=== PATIENT | male | born 1960 | race Caucasian/White ===

== ENCOUNTER 2017-07-29 14:56 | Emergency (ER) | payer OTHER ==
[2017-07-29] MEDS ORDERED: LIDOCAINE 1% MPF 5 ML VIAL ONE (15:49)
--- NOTE | 2017-07-29 16:39 | ER ---
Nurse's Notes [facility] Name: Jonas Guzman Age: 57 yrs Sex: Male : 1960 Arrival Date: 07/29/2017 Time: 15:01 Bed 24 Private MD: Diagnosis: Laceration without foreign body of unspecified part of head-chin Presentation: 07/29 15:03 Presenting complaint: Patient states: I slipped and fell and a piece of metal cut my ed1 chin. Transition of care: patient was not received from another setting of care. Complicating Factors: There are no complicating factors for this patient. Onset of symptoms was July 29, 2017 at 12:45. Risk Assessment: Do you want to hurt yourself or someone else? Patient reports no desire to harm self or others. Initial Sepsis Screen: Does the patient meet any 2 criteria? No. Patient's initial sepsis screen is negative. Does the patient have a suspected source of infection? No. Patient's initial sepsis screen is negative. Care prior to arrival: Bleeding of injury controlled. Injury cleansed. Injury dressed. 15:03 Method Of Arrival: Law Enforcement: [place] [employer] ed1 15:21 Acuity: DAVID 4 ss Triage Assessment: 15:06 General: Appears in no apparent distress. Behavior is calm, cooperative. Pain: ed1 Complains of pain in chin Pain does not radiate. Pain currently is 8 out of 10 on a pain scale. Quality of pain is described as throbbing, Pain began 2 hours ago. Is continuous. Injury Description: Laceration sustained to chin is clean, 2.6 to 7.5 cm long, not bleeding, was sustained 2-4 hours ago. is bleeding no active bleeding noted. a dressing was applied. Historical: - Allergies: 15:06 No Known Allergies; ed1 - Home Meds: 15:06 amlodipine 10 mg tab 1 tab once daily [Active]; aspirin 81 mg Oral TbEC 1 tab once ed1 daily [Active]; lisinopril 40 mg Oral tab 1 tab once daily [Active]; metoprolol tartrate 50 mg Oral tab 1 tab 2 times per day [Active]; terazosin 5 mg Oral cap 1 cap once daily [Active]; - PMHx: 15:06 Hypertension; Kidney stones; ed1 - PSHx: 15:06 None; ed1 - Immunization history:: Adult Immunizations up to date, Last tetanus immunization: up to date given today. - Social history:: Smoking status: Patient/guardian denies using tobacco. - Ebola Screening: : Patient negative for fever greater than or equal to 101.5 degrees Fahrenheit, and additional compatible Ebola Virus Disease symptoms Patient denies exposure to infectious person Patient denies travel to an Ebola-affected area in the 21 days before illness onset No symptoms or risks identified at this time. Screenin:08 Abuse screen: Denies threats or abuse. Denies injuries from another. Nutritional ed1 screening: No deficits noted. Tuberculosis screening: No symptoms or risk factors identified. Fall Risk None identified. Assessment: 15:08 General: Appears in no apparent distress. Behavior is calm, cooperative. Pain: ed1 Complains of pain in chin. Neuro: Level of Consciousness is awake, alert, obeys commands, Oriented to person, place, time, situation. Cardiovascular: Denies chest pain, Heart tones S1 S2 present. Respiratory: Airway is patent Respiratory effort is even, unlabored, Respiratory pattern is regular, symmetrical, Breath sounds are clear bilaterally. GI: No signs and/or symptoms were reported involving the gastrointestinal system. : No signs and/or symptoms were reported regarding the genitourinary system. EENT: No signs and/or symptoms were reported regarding the EENT system. Derm: Skin is pink, warm \T\ dry. Musculoskeletal: Circulation, motion, and sensation intact. Range of motion: intact in all extremities. Injury Description: Laceration sustained to chin. 15:15 General: The previous assessment is accurate, call light remains within reach. . ss 16:08 Injury Description: Laceration sustained to chin is clean, 2.6 to 7.5 cm long, not ed1 bleeding, was sustained 2-4 hours ago. is bleeding no active bleeding noted. a dressing was applied. 16:08 Reassessment: Patient appears in no apparent distress at this time. No changes from ed1 previously documented assessment. Patient and/or family updated on plan of care and expected duration. Pain level reassessed. Patient is alert, oriented x 3, equal unlabored respirations, skin warm/dry/pink. Patient states symptoms have not improved. 16:59 Reassessment: Patient appears in no apparent distress at this time. No changes from ed1 previously documented assessment. Patient and/or family updated on plan of care and expected duration. Pain level reassessed. Patient is alert, oriented x 3, equal unlabored respirations, skin warm/dry/pink. Vital Signs: 15:06 BP 154 / 97; Pulse 86; Resp 18; Temp 97.8(O); Pulse Ox 96% on R/A; Weight 95.25 kg (R); ed1 Height 6 ft. 0 in. (182.88 cm) (R); Pain 8/10; 16:08 BP 148 / 99; Pulse 78; Resp 18; Pulse Ox 95% on R/A; Pain 8/10; ed1 15:06 Body Mass Index 28.48 (95.25 kg, 182.88 cm) ed1 ED Course: 15:01 Patient arrived in ED. 15:03 Amanda Soler LVN is Primary Nurse. ed1 15:06 Arm band placed on left wrist. ed1 15:08 Awaiting ED provider evaluation. ed1 15:08 Patient has correct armband on for positive identification. Bed in low position. Call ed1 light in reach. Adult w/ patient. Pulse ox on. NIBP on. 15:21 Triage completed. ss 15:24 Kp Tello NP is PHCP. pm1 15:24 Solomon Nielsen MD is Attending Physician. pm1 16:59 No provider procedures requiring assistance completed. Patient did not have IV access ed1 during this emergency room visit. Administered Medications: 15:49 Drug: Lidocaine (1 %) 5 ml Volume: 5 ml; Route: Infiltration; ed1 Outcome: 16:38 Discharge ordered by . pm1 16:59 Discharged to Law Enforcement ed1 16:59 Condition: good 16:59 Discharge instructions given to patient, Instructed on discharge instructions, follow up and referral plans. medication usage, wound care, Demonstrated understanding of instructions, follow-up care, medications, wound care, Prescriptions given X 1. 16:59 Patient left the ED. ed1 Signatures: Medina Palacios RN RN Amanda Soler LVN REGISTERED DENTAL ASSISTANT RDA ed1 Kp Tello NP SENIOR FINANCIAL ANALYST pm1 Corrections: (The following items were deleted from the chart) 16:09 16:08 Injury Description: Laceration sustained to chin is clean, 2.6 to 7.5 cm long, ed1 not bleeding, was sustained 2-4 hours ago. is bleeding no active bleeding noted. a dressing was applied ed1
--- NOTE | 2017-07-29 16:39 | EDPHYS ---
Physician Documentation [facility] Name: Jonas Guzman Age: 57 yrs Sex: Male : 1960 Arrival Date: 07/29/2017 Time: 15:01 Bed 24 Private MD: ED Physician Solomon Nielsen HPI: 07/29 16:37 This 57 yrs old Male presents to ER via Law Enforcement with complaints of pm1 Laceration To Chin. 16:37 The patient has a laceration related to: working, occurred Shelter, Galvanized steel pm1 sheet accidentally cut his left side of chin. The laceration(s) is(are) located on the chin. Onset: The symptoms/episode began/occurred just prior to arrival. Associated signs and symptoms: Pertinent negatives: deformity, heavy bleeding, suspected foreign body. The patient has not recently seen a physician. Patient was given tetanus at senior living prior to arrival. Historical: - Allergies: 15:06 No Known Allergies; ed1 - Home Meds: 15:06 amlodipine 10 mg tab 1 tab once daily [Active]; aspirin 81 mg Oral TbEC 1 tab once ed1 daily [Active]; lisinopril 40 mg Oral tab 1 tab once daily [Active]; metoprolol tartrate 50 mg Oral tab 1 tab 2 times per day [Active]; terazosin 5 mg Oral cap 1 cap once daily [Active]; - PMHx: 15:06 Hypertension; Kidney stones; ed1 - PSHx: 15:06 None; ed1 - Immunization history:: Adult Immunizations up to date, Last tetanus immunization: up to date given today. - Social history:: Smoking status: Patient/guardian denies using tobacco. - Ebola Screening: : Patient negative for fever greater than or equal to 101.5 degrees Fahrenheit, and additional compatible Ebola Virus Disease symptoms Patient denies exposure to infectious person Patient denies travel to an Ebola-affected area in the 21 days before illness onset No symptoms or risks identified at this time. ROS: 16:37 Constitutional: Negative for fever, chills, and weight loss, Eyes: Negative for injury, pm1 pain, redness, and discharge, ENT: Negative for injury, pain, and discharge, Neck: Negative for injury, pain, and swelling, Cardiovascular: Negative for chest pain, palpitations, and edema, Respiratory: Negative for shortness of breath, cough, wheezing, and pleuritic chest pain, Abdomen/GI: Negative for abdominal pain, nausea, vomiting, diarrhea, and constipation, Back: Negative for injury and pain, MS/Extremity: Negative for injury and deformity. 16:37 Neuro: Negative for headache, weakness, numbness, tingling, and seizure. 16:37 Skin: Positive for laceration(s), of the chin. Exam: 16:37 Constitutional: This is a well developed, well nourished patient who is awake, alert, pm1 and in no acute distress. 16:37 Chest/axilla: Normal chest wall appearance and motion. Nontender with no deformity. No lesions are appreciated. Cardiovascular: Regular rate and rhythm with a normal S1 and S2. No gallops, murmurs, or rubs. Normal PMI, no JVD. No pulse deficits. Respiratory: Lungs have equal breath sounds bilaterally, clear to auscultation and percussion. No rales, rhonchi or wheezes noted. No increased work of breathing, no retractions or nasal flaring. Back: No spinal tenderness. No costovertebral tenderness. Full range of motion. 16:37 Head/face: Noted is a laceration(s), that is jagged, 3 cm(s), of the chin. 16:37 Skin: Appearance: normal except for affected area, injury, laceration(s), the wound is approximately 3 cm(s), with a depth of 1 cm(s), of the chin. 16:37 Neuro: Orientation: is normal, Motor: is normal, moves all fours. Vital Signs: 15:06 BP 154 / 97; Pulse 86; Resp 18; Temp 97.8(O); Pulse Ox 96% on R/A; Weight 95.25 kg (R); ed1 Height 6 ft. 0 in. (182.88 cm) (R); Pain 8/10; 16:08 BP 148 / 99; Pulse 78; Resp 18; Pulse Ox 95% on R/A; Pain 8/10; ed1 15:06 Body Mass Index 28.48 (95.25 kg, 182.88 cm) ed1 Laceration: 16:37 Wound Repair of 3cm ( 1.2in ) subcutaneous laceration to chin. Irregularly shaped.. pm1 Distal neuro/vascular/tendon intact. Anesthesia: Local anesthetic administered with 4 mls of 1% lidocaine. Wound prep: Extensive cleansing with betadine by me, Wound irrigation with saline by me, Wound explored extensively, Copious irrigation. Skin closed with 10 5-0 Prolene using simple sutures and sterile technique. Dressed with Neosporin. Patient tolerated well. MDM: 15:24 Patient medically screened. pm1 16:37 Data reviewed: vital signs. Data interpreted: Pulse oximetry: on room air is 95 %. pm1 Interpretation: normal. Counseling: I had a detailed discussion with the patient and/or guardian regarding: the historical points, exam findings, and any diagnostic results supporting the discharge/admit diagnosis, the need for outpatient follow up, to return to the emergency department if symptoms worsen or persist or if there are any questions or concerns that arise at home. 07/29 15:40 Order name: Prolene, Sutures; Complete Time: 15:46 pm1 07/29 15:40 Order name: Gloves, Sterile; Complete Time: 15:46 pm1 07/29 15:40 Order name: Setup Suture Tray; Complete Time: 15:46 pm1 Administered Medications: 15:49 Drug: Lidocaine (1 %) 5 ml Volume: 5 ml; Route: Infiltration; ed1 Disposition: 07/29/17 16:38 Discharged to Home. Impression: Laceration without foreign body of unspecified part of head - chin. - Condition is Stable. - Discharge Instructions: Facial Laceration, Stitches, [place], or Adhesive Wound Closure. - Prescriptions for Keflex 500 mg Oral Capsule - take 1 capsule by ORAL route every 12 hours for 10 days; 20 capsule. - Medication Reconciliation Form, Thank You Letter, Antibiotic Education form. - Follow up: Emergency Department; When: As needed; Reason: Worsening of condition. Follow up: Private Physician; When: 4-5 days; Reason: Wound Recheck, Recheck today's complaints, Continuance of care, Staple/Suture removal, Re-evaluation by your physician. - Problem is new. - Symptoms have improved. Addendum: 07/31/2017 14:41 Co-signature as Attending Physician, Solomon Nielsen MD I agree with the assessment and w a plan of care. Signatures: Amanda Soler, UPKEEP MECHANIC UPKEEP MECHANIC ed1 Kp Tello, FUEL CONVERSION TECHNICIAN FUEL CONVERSION TECHNICIAN pm1 Solomon Nielsen MD MD wa Corrections: (The following items were deleted from the chart) 07/29 16:59 16:38 07/29/2017 16:38 Discharged to Home. Impression: Laceration without foreign body ed1 of unspecified part of head - chin. Condition is Stable. Forms are Medication Reconciliation Form, Thank You Letter, Antibiotic Education, Prescription Opioid Use. Follow up: Emergency Department; When: As needed; Reason: Worsening of condition. Follow up: Private Physician; When: 4-5 days; Reason: Wound Recheck, Recheck today's complaints, Continuance of care, Staple/Suture removal, Re-evaluation by your physician. Problem is new. Symptoms have improved. pm1
== END 2017-07-29 16:59 | disposition home or self-care (01) ==
LOC: ER 14:56
PROC: 0HQ1XZZ Repair Face Skin, External Approach (ICD-10-PCS; principal; 2017-07-29)
DX: S01.81XA Laceration without foreign body of other part of head, initial encounter (principal); I10 Essential (primary) hypertension; W26.8XXA Contact with other sharp object(s), not elsewhere classified, initial encounter; Y93.89 Activity, other specified; Y92.148 Other place in prison as the place of occurrence of the external cause; Y99.8 Other external cause status
CPT/HCPCS: 99283

== ENCOUNTER 2017-08-02 08:04 | Emergency (ER) | payer OTHER ==
[2017-08-02] MEDS ORDERED: ONDANSETRON 4 MG/2 ML VIAL ONE (08:26)
[2017-08-02] MEDS ORDERED: NA CHLORIDE 0.9% 1,000 ML ONE (08:26)
[2017-08-02] MEDS ORDERED: FENTANYL CITR 100 MCG/2 ML ONE (08:26)
[2017-08-02 08:38] LABS: Absolute Lymphocytes (CBC) 1.5 K/uL (0.7-4.9); Absolute Monocytes 0.9 K/uL (0.1-1.3); Absolute Neutrophil 3.9 K/uL (1.8-8.0); Basophils % 0.5 % (0-1.3); Eosinophils % 3.6 % (0-4.4); Hematocrit 39.8 % (39.6-49.0); Lymphocytes % 22.6 % (15.3-44.8); MCH 30.7 pg (27.0-35.0); MCV 92.4 fL (80-100); MPV 9.4 fL (7.6-11.3); RBC Red Blood Cell Count 4.31 M/uL (4.33-5.43)
[2017-08-02 08:59] LABS: Albumin 3.7 g/dL (3.4-5.0); Bilirubin Direct 0.1 mg/dL (0-0.2); Bilirubin Total 0.4 mg/dL (0.2-1.0); Potassium 3.8 mmol/L (3.5-5.1); Protein, Total 7.9 g/dL (6.4-8.2)
--- NOTE | 2017-08-02 09:23 | RAD REPORT ---
EXAM DESCRIPTION: CT - Stone Protocol - 08/02/2017 9:09 am CLINICAL HISTORY: Abdominal pain, left flank pain COMPARISON: None. TECHNIQUE: Axial 5 mm thick images were obtained without oral or IV contrast. The [id number] span s the entirety of the system partially obscuring uppermost abdomen and lung bases. All CT scans are performed using dose optimization technique as appropriate and may include automated exposure control or mA/KV adjustment according to patient size. FINDINGS: Moderate left-sided hydronephrosis is present secondary to an 8 x 4 mm distal left uretera l calculus. This is along the inferior margin of the pelvic inlet several cm from the bladder. No oth er obstructing or nonobstructing calculi. Patient has multiple left-sided low-density masses believed to be cysts. Largest is 5.5 cm. No calcification or wall thickening of these presumed cysts. There i s left-sided perinephric stranding. No right-sided hydronephrosis. A 4 mm nonobstructing calculus not ed in the posterior lower pole calyx on the right. No suspicious renal masses. Isodense masses and py elonephritis are not excluded on a stone protocol CT scan. No bladder wall thickening or mass. Hyperd ensity in the prostate is from treatment procedure. Imaged portions of the liver, spleen and pancreas show no suspicious findings on non-contrast imaging . Gallbladder is distended. Gallstones can be occult. No biliary tree dilatation. No significant adre nal finding. No suspicious bowel findings. No acute GI process suspected. No mass or bulky lymphadenopathy. No free air or free fluid. No pneumatosis. No acute or destructive bone process. IMPRESSION: Moderate left-sided hydronephrosis secondary to an 8 x 4 mm stone distal left ureter sev eral cm from the bladder. On a KUB projection, the obstructing calculus is near the inferior margin of the sacral ala. There is adjacent dense vascular calcification. The obstructing stone is the more inferior of these calcifica tions. Isodense masses and pyelonephritis are not excluded on stone protocol technique.
[2017-08-02] MEDS ORDERED: KETOROLAC 30 MG/ML INJ ONE (09:29)
[2017-08-02] MEDS ORDERED: CEFTRIAXONE/SWI 1gm 1 GM/10 ML SYR ONE (10:35)
[2017-08-02 10:57] LABS: Urine Bacteria <20 /HPF (NONE SEEN); Urine Culture Reflex Order REFLEXED; Urine RBC <5 /HPF (NONE SEEN)
[2017-08-02 10:58] LABS: Urine Blood 2+ (NEG); Urine Glucose NEGATIVE (NEG); Urine Protein NEGATIVE (NEG); Urine pH 5.5 (5.0-7.0)
--- NOTE | 2017-08-02 11:11 | ER ---
Nurse's Notes [facility] Name: Jonas Guzman Age: 57 yrs Sex: Male : 1960 Arrival Date: 08/02/2017 Time: 08:05 Bed 20 Private MD: Diagnosis: Hydronephrosis with renal and ureteral calculous obstruction;Urinary tract infection, site not specified Presentation: 08/02 08:05 Presenting complaint: Patient states: has had left flank pain since Thursday, hx of iw kidney stones, having difficulty urinating, also has n/v, pain 10/, has been taking abx and Tylenol #3. Transition of care: patient was not received from another setting of care. Onset of symptoms was July 31, 2017. Risk Assessment: Do you want to hurt yourself or someone else? Patient reports no desire to harm self or others. Initial Sepsis Screen: Does the patient meet any 2 criteria? No. Patient's initial sepsis screen is negative. Does the patient have a suspected source of infection? No. Patient's initial sepsis screen is negative. Care prior to arrival: None. 08:05 Method Of Arrival: Law Enforcement: [place] [employer] iw 08:05 Acuity: DAVID 3 iw Historical: - Allergies: 08:08 NKA; iw - Home Meds: 08:08 terazosin 5 mg Oral cap 1 cap once daily [Active]; metoprolol tartrate 50 mg Oral tab 1 iw tab 2 times per day [Active]; lisinopril 40 mg Oral tab 1 tab once daily [Active]; aspirin 81 mg Oral TbEC 1 tab once daily [Active]; amlodipine 10 mg tab 1 tab once daily [Active]; Bactrim DS Oral [Active]; Tylenol #3 Oral [Active]; - PMHx: 08:08 Hypertension; Kidney stones; iw - PSHx: 08:08 Lithotripsy; iw - Immunization history:: Adult Immunizations up to date. - Social history:: Smoking status: Patient/guardian denies using tobacco. - Ebola Screening: : Patient negative for fever greater than or equal to 101.5 degrees Fahrenheit, and additional compatible Ebola Virus Disease symptoms Patient denies exposure to infectious person Patient denies travel to an Ebola-affected area in the 21 days before illness onset No symptoms or risks identified at this time. Screenin:36 Abuse screen: Denies threats or abuse. Denies injuries from another. Nutritional iw screening: No deficits noted. Tuberculosis screening: No symptoms or risk factors identified. Fall Risk None identified. Assessment: 08:34 General: Appears uncomfortable, Behavior is cooperative. Pain: Complains of pain in iw anterior aspect of left lateral abdomen and posterior aspect of left lateral abdomen Pain currently is 10 out of 10 on a pain scale. Neuro: Level of Consciousness is awake, alert, obeys commands, Oriented to person, place, time, situation, Moves all extremities. Full function. Cardiovascular: Patient's skin is warm and dry. Respiratory: Respiratory effort is even, unlabored, Respiratory pattern is regular, symmetrical. GI: Abdomen is non-distended. : Reports difficulty with urination. : Reports pain in left flank(s). Derm: Skin is pink, warm \T\ dry. normal. Musculoskeletal: Range of motion: intact in all extremities. 08:58 Reassessment: Patient appears in no apparent distress at this time. pt wheeled to CT em via stretcher, 2 correctional officers escorting pt. 09:30 Reassessment: Patient and/or family updated on plan of care and expected duration. Pain em level reassessed. c/o pain MARSHA Goodrich notified, new orders received. 10:17 Reassessment: Patient appears in no apparent distress at this time. Patient and/or em family updated on plan of care and expected duration. Pain level reassessed. Patient is alert, oriented x 3, equal unlabored respirations, skin warm/dry/pink. rates pain 7/10 Patient states feeling better. 11:20 Reassessment: Patient appears in no apparent distress at this time. reports pain, em MARSHA Goodrich at bedside, new orders received. 11:44 Reassessment: Patient appears in no apparent distress at this time. Patient and/or em family updated on plan of care and expected duration. Pain level reassessed. Patient is alert, oriented x 3, equal unlabored respirations, skin warm/dry/pink. report called to MAKENNA Esposito at [facility], awaiting transportation. 12:58 Reassessment: Patient appears in no apparent distress at this time. Patient and/or em family updated on plan of care and expected duration. Pain level reassessed. Patient is alert, oriented x 3, equal unlabored respirations, skin warm/dry/pink. awaiting EMS for transportation Patient states feeling better. 13:16 Reassessment: Patient appears in no apparent distress at this time. Patient and/or em family updated on plan of care and expected duration. Pain level reassessed. report given to [facility], will transport to [facility]. Vital Signs: 08:10 BP 167 / 98; Pulse 76; Resp 20 S; Temp 98.2; Pulse Ox 98% on R/A; Weight 90.72 kg; iw Height 6 ft. (182.88 cm); Pain 10/10; 09:15 BP 150 / 93; Pulse 66; Resp 18; Pulse Ox 99% on R/A; Pain 10/10; em 10:18 BP 149 / 91; Pulse 66; Resp 16; Pulse Ox 99% on R/A; Pain 7/10; em 11:15 BP 152 / 94; Pulse 57; Resp 18; Pulse Ox 95% on R/A; em 11:40 BP 157 / 97; Pulse 67; Resp 16; Pulse Ox 94% on R/A; Pain 5/10; em 12:59 BP 154 / 91; Pulse 62; Resp 16; Pulse Ox 94% ; em 08:10 Body Mass Index 27.12 (90.72 kg, 182.88 cm) ED Course: 08:05 Patient arrived in ED. iw 08:05 Roland Kilpatrick MD is Attending Physician. [facility] 08:06 Triage completed. iw 08:10 Arm band placed on. iw 08:13 Kp Tello NP is PHCP. pm1 08:15 Patient has correct armband on for positive identification. Bed in low position. Call em light in reach. Security at bedside. 08:16 Zuleyma Galarza, MAKENNA is Primary Nurse. iw 08:26 Initial lab(s) drawn, by me, sent to lab. Inserted saline lock: 20 gauge in right iw antecubital area, using aseptic technique. Blood collected. 09:08 CT completed. Patient tolerated procedure well. Patient moved back from CT. kw1 09:10 CT Stone Protocol In Process Unspecified. EDMS 10:10 Straight cath inserted, using sterile technique, 18 Fr. Specimen obtained. Returned em bright yellow, cloudy. Patient tolerated well. 11:43 No provider procedures requiring assistance completed. Patient transferred, IV remains em in place. Administered Medications: 08:32 Drug: NS 0.9% 1000 ml Route: IV; Rate: 1000 ml; Site: right antecubital; iw 11:01 Follow up: IV Status: Completed infusion; IV Intake: 1000ml em 08:32 Drug: fentaNYL (PF) 50 mcg Route: IVP; Site: right antecubital; iw 11:01 Follow up: Response: No adverse reaction em 08:32 Drug: Zofran 4 mg Route: IVP; Site: right antecubital; iw 11:01 Follow up: Response: No adverse reaction em 09:35 Drug: TORadol 30 mg Route: IVP; Site: right antecubital; iw 11:01 Follow up: Response: No adverse reaction; Pain is decreased em 10:41 Drug: Rocephin 1 grams Route: IV; Rate: calculated rate; Site: right antecubital; iw 11:34 Follow up: Response: No adverse reaction; IV Status: Completed infusion em 11:37 Drug: fentaNYL (PF) 50 mcg Route: IVP; Site: right antecubital; em 13:18 Follow up: Response: No adverse reaction em Intake: 11:01 IV: 1000ml; Total: 1000ml. em Outcome: 11:10 ER care complete, transfer ordered by . pm1 11:43 Transferred by ground EMS to [facility], Transfer form em completed. X-rays sent w/ patient. 11:43 Condition: good 11:43 Instructed on the need for transfer, Demonstrated understanding of instructions. 13:16 Patient left the ED. iw Signatures: Dispatcher [employer] Roland Lovell MD MD cha Munoz, Edgar, MANAGER LINE MANAGER LINE Zuleyma Zavala, MAKENNA RN iw Kp Tello, MARSHA PILATES INSTRUCTOR pm1 Erika Guthrie kw1
--- NOTE | 2017-08-02 11:11 | EDPHYS ---
Physician Documentation [facility] Name: Jonas Guzman Age: 57 yrs Sex: Male : 1960 Arrival Date: 08/02/2017 Time: 08:05 Bed 20 Private MD: ED Physician Roland Kilpatrick HPI: 08/02 09:00 This 57 yrs old Male presents to ER via [employer] with complaints of pm1 Left Flank Pain. 09:00 The patient complains of pain in the left low back. The pain radiates to the anterior pm1 aspect of left lateral abdomen. Onset: The symptoms/episode began/occurred 3 day(s) ago. Modifying factors: The symptoms are alleviated by nothing. the symptoms are aggravated by nothing. Associated signs and symptoms: Pertinent positives: dysuria, hematuria, Pertinent negatives: diarrhea, fever, nausea, vomiting. Severity of pain: in the emergency department the pain is actually worse markedly. The patient has experienced similar episodes in the past, a few times, and the symptoms today are exactly the same, to previous kidney stones. [facility] clinic gave the patient bactrim and ibuprofen for left flank pain. Historical: - Allergies: 08:08 NKA; iw - Home Meds: 08:08 terazosin 5 mg Oral cap 1 cap once daily [Active]; metoprolol tartrate 50 mg Oral tab 1 iw tab 2 times per day [Active]; lisinopril 40 mg Oral tab 1 tab once daily [Active]; aspirin 81 mg Oral TbEC 1 tab once daily [Active]; amlodipine 10 mg tab 1 tab once daily [Active]; Bactrim DS Oral [Active]; Tylenol #3 Oral [Active]; - PMHx: 08:08 Hypertension; Kidney stones; iw - PSHx: 08:08 Lithotripsy; iw - Immunization history:: Adult Immunizations up to date. - Social history:: Smoking status: Patient/guardian denies using tobacco. - Ebola Screening: : Patient negative for fever greater than or equal to 101.5 degrees Fahrenheit, and additional compatible Ebola Virus Disease symptoms Patient denies exposure to infectious person Patient denies travel to an Ebola-affected area in the 21 days before illness onset No symptoms or risks identified at this time. ROS: 09:00 Constitutional: Negative for fever, chills, and weight loss, Eyes: Negative for injury, pm1 pain, redness, and discharge, ENT: Negative for injury, pain, and discharge, Neck: Negative for injury, pain, and swelling, Cardiovascular: Negative for chest pain, palpitations, and edema, Respiratory: Negative for shortness of breath, cough, wheezing, and pleuritic chest pain, Abdomen/GI: Negative for abdominal pain, nausea, vomiting, diarrhea, and constipation. 09:00 MS/Extremity: Negative for injury and deformity, Skin: Negative for injury, rash, and discoloration, Neuro: Negative for headache, weakness, numbness, tingling, and seizure. 09:00 Back: Positive for flank pain, on the left. 09:00 : Positive for hematuria, difficulty urinating. Exam: 09:00 Constitutional: This is a well developed, well nourished patient who is awake, alert, pm1 and in no acute distress. Head/Face: Normocephalic, atraumatic. Neck: Trachea midline, no thyromegaly or masses palpated, and no cervical lymphadenopathy. Supple, full range of motion without nuchal rigidity, or vertebral point tenderness. No Meningismus. Chest/axilla: Normal chest wall appearance and motion. Nontender with no deformity. No lesions are appreciated. Cardiovascular: Regular rate and rhythm with a normal S1 and S2. No gallops, murmurs, or rubs. Normal PMI, no JVD. No pulse deficits. Respiratory: Lungs have equal breath sounds bilaterally, clear to auscultation and percussion. No rales, rhonchi or wheezes noted. No increased work of breathing, no retractions or nasal flaring. Abdomen/GI: Soft, non-tender, with normal bowel sounds. No distension or tympany. No guarding or rebound. No evidence of tenderness throughout. 09:00 Skin: Warm, dry with normal turgor. Normal color with no rashes, no lesions, and no evidence of cellulitis. MS/ Extremity: Pulses equal, no cyanosis. Neurovascular intact. Full, normal range of motion. 09:00 Back: CVA tenderness, that is moderate, is noted on the left, vertebral tenderness, is not appreciated. 09:00 Neuro: Orientation: is normal, Motor: is normal, moves all fours. Vital Signs: 08:10 BP 167 / 98; Pulse 76; Resp 20 S; Temp 98.2; Pulse Ox 98% on R/A; Weight 90.72 kg; iw Height 6 ft. (182.88 cm); Pain 10/10; 09:15 BP 150 / 93; Pulse 66; Resp 18; Pulse Ox 99% on R/A; Pain 10/10; em 10:18 BP 149 / 91; Pulse 66; Resp 16; Pulse Ox 99% on R/A; Pain 7/10; em 11:15 BP 152 / 94; Pulse 57; Resp 18; Pulse Ox 95% on R/A; em 11:40 BP 157 / 97; Pulse 67; Resp 16; Pulse Ox 94% on R/A; Pain 5/10; em 12:59 BP 154 / 91; Pulse 62; Resp 16; Pulse Ox 94% ; em 08:10 Body Mass Index 27.12 (90.72 kg, 182.88 cm) iw MDM: 08:05 Patient medically screened. arsen 10:43 Data reviewed: vital signs. Data interpreted: Pulse oximetry: on room air is 99 %. pm1 Interpretation: normal. Counseling: I had a detailed discussion with the patient and/or guardian regarding: the historical points, exam findings, and any diagnostic results supporting the discharge/admit diagnosis, lab results, radiology results, the need to transfer to another facility, [facility] does not immediately have the required specialist. 11:25 Physician consultation: Andrea Mcgee was contacted at 11:20, regarding regarding pm1 transfer, patient's condition, and will see patient. 08/02 08:14 Order name: Basic Metabolic Panel; Complete Time: 09:23 pm08/02 08:14 Order name: CBC with Diff; Complete Time: 08:44 pm1 08/02 08:14 Order name: Hepatic Function; Complete Time: 09:23 pm08/02 08:14 Order name: Lipase; Complete Time: 09:23 pm08/02 08:14 Order name: Urine Microscopic Only; Complete Time: 11:10 pm1 08/02 08:14 Order name: CT Stone Protocol; Complete Time: 09:23 pm08/02 10:44 Order name: Urine Dipstick--Ancillary (enter results) bd 08/02 10:44 Order name: Urine Dipstick-Ancillary; Complete Time: 11:10 EDMS 08/02 08:14 Order name: IV Saline Lock; Complete Time: 08:31 pm1 08/02 08:14 Order name: Labs collected and sent; Complete Time: 08:31 pm1 08/02 08:14 Order name: Urine Dipstick-Ancillary (obtain specimen); Complete Time: 11:02 pm1 Administered Medications: 08:32 Drug: NS 0.9% 1000 ml Route: IV; Rate: 1000 ml; Site: right antecubital; iw 11:01 Follow up: IV Status: Completed infusion; IV Intake: 1000ml em 08:32 Drug: fentaNYL (PF) 50 mcg Route: IVP; Site: right antecubital; iw 11:01 Follow up: Response: No adverse reaction em 08:32 Drug: Zofran 4 mg Route: IVP; Site: right antecubital; iw 11:01 Follow up: Response: No adverse reaction em 09:35 Drug: TORadol 30 mg Route: IVP; Site: right antecubital; iw 11:01 Follow up: Response: No adverse reaction; Pain is decreased em 10:41 Drug: Rocephin 1 grams Route: IV; Rate: calculated rate; Site: right antecubital; iw 11:34 Follow up: Response: No adverse reaction; IV Status: Completed infusion em 11:37 Drug: fentaNYL (PF) 50 mcg Route: IVP; Site: right antecubital; em 13:18 Follow up: Response: No adverse reaction em Disposition: 08/02/17 11:10 Transfer ordered to [facility]. Diagnosis are Hydronephrosis with renal and ureteral calculous obstruction, Urinary tract infection, site not specified. - Reason for transfer: Specialty. - Accepting physician is [facility]. - Condition is Stable. - Problem is new. - Symptoms have improved. Addendum: 08/03/2017 16:09 Co-signature as Attending Physician, Roland Kilpatrick MD I agree with the assessment and c wallace plan of care. Signatures: Dispatcher [employer] Roland Lovell MD MD cha Munoz, Edgar, LEAD SHOP OPERATOR LEAD SHOP OPERATOR em Zuleyma Galarza, MAKENNA RN iw Kp Tello, MARSHA [employer]ICE [employer] ENGINEER pm1 Corrections: (The following items were deleted from the chart) 08/02 13:16 11:10 08/02/2017 11:10 Transfer ordered to [facility]. Diagnosis is Hydronephrosis iw with renal and ureteral calculous obstruction; Urinary tract infection, site not specified. Reason for transfer: Specialty. Accepting physician is [facility]. Condition is Stable. Problem is new. Symptoms have improved. pm1
== END 2017-08-02 13:16 | disposition short-term general hospital (02) ==
LOC: ER 08:04
DX: N13.2 Hydronephrosis with renal and ureteral calculous obstruction (principal); N39.0 Urinary tract infection, site not specified; I10 Essential (primary) hypertension; Z79.82 Long term (current) use of aspirin
CPT/HCPCS: 36415; 51702; 74176; 76377; 80048; 80076; 81003; 81015; 83690; 85025; 96361; 96365; 96375; 99285; J0696; J2405; J3010; J7030